=== PATIENT | male | born 1980 | race African-American/Black ===

== ENCOUNTER 2023-07-15 10:18 | Outpatient (AMB) | payer BC, SELFPAY ==
[2023-07-15 10:21] VITALS: BP 122/80; PULSE 93; O2SAT 96; BMI 32.9
--- NOTE | 2023-07-15 10:21 | HO.NEPHOV ---
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 He has been having a serum creatinine of 1.4. His blood pressure is well controlled on nifedipine. He recently had pouchitis and was treated with antibiotics. He denies nausea, vomiting, diarrhea, chest pain, shortness of breath, proximal nocturnal dyspnea, orthopnea, pedal edema, orthostatic symptoms, dysuria or hematuria. He has no history of drug use. He does not take nonsteroidal anti-inflammatories. He t vahe to maintain good hydration. There were no new complaints at the time of this office visit. [facility] Medical History (Updated 07/15/23 @ 10:41 by Cory Clements MD) Elevated serum creatinine Essential (primary) hypertension Askew syndrome Surgical History (Updated 07/15/23 @ 10:24 by Olivia Stroud MA) History of colon surgery Family History Mother Diabetes Hypertension Brother Diabetes Hypertension Cancer Father Cancer Social History (Updated 07/15/23 @ 10:24 by Olivia Stroud MA) Alcohol intake: current Comment: Occasionally Patient Tobacco Use Status: Never used Tobacco Vital Signs 07/15/23 10:21 Height 6 ft 4 in Weight 270 lb BMI 32.9 BP 122/80 Blood Pressure Location Lt brachial Position Sitting Pulse 93 Pulse Source Pulse Oximeter Pulse Oximetry (%) 96 Oxygen Delivery Method Room Air Physical Exam Vital Signs: Last Vital Signs Pulse 93 07/15/23 10:21 BP 122/80 07/15/23 10:21 Pulse Ox 96 07/15/23 10:21 Oxygen Delivery Method Room Air 07/15/23 10:21 BMI result Body Mass Index 32.9 Const General: comfortable and no acute distress Orientation/consciousness: patient oriented x3 HEENT Head: Yes normocephalic Mouth: Normal oral and palatal mucosa present Eyes EOM: EOMs intact bilaterally Neck Neck: Yes supple Resp Auscultation: clear to auscultation bilaterally Cardio Jugular venous distension: no JVD Rate: regular rate GI Palpation (GI): Soft to palpation Auscultation: normal bowel sounds General: Yes no CVA tenderness Back/Spine/Pelvis Back: no CVA tenderness Skin General skin exam: no rashes or lesions noted Neuro General: patient oriented x3 and moves all extremities Extrem General: Yes no pedal edema Assessment & Plan Assessment & Plan (1) Essential (primary) hypertension: Code(s): I10 - Essential (primary) hypertension (2) Askew syndrome: Code(s): Z15.09 - Genetic susceptibility to other malignant neoplasm Plan 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 He had surgery for rectal cancer with the ostomy which was later revised. He has no hematuria or proteinuria. He is hypertensive. He is on nifedipine. He does not take nonsteroidal anti-inflammatories on a regular basis. His last serum creatinine has been 1.4. He may have had mild ATN during his surgical time. Patients with Askew syndrome have high preponderance for renal cancer. He last renal ultrasound with surveillance only showed questionable specks of stones on the left kidney. I will do a follow-up ultrasound next year. His blood pressure needs to be maintained at goal. I have ordered blood work, 24 hour urine for creatinine clearance and a random urine for protein. His her creatinine may also be due to high muscle mass. I did not make any medication changes today. All his questions answered. Follow-up given. Orders: Orders Electrolytes Today I10 - Essential (primary) hypertension, Z15.09 - Genetic susceptibility to other malignant neoplasm Creatinine Clearance Urine Today I10 - Essential (primary) hypertension, Z15.09 - Genetic susceptibility to other malignant neoplasm Creatinine Today I10 - Essential (primary) hypertension, Z15.09 - Genetic susceptibility to other malignant neoplasm Blood Urea Nitrogen Today I10 - Essential (primary) hypertension, Z15.09 - Genetic susceptibility to other malignant neoplasm Protein Creatinine Ratio, Ur Today I10 - Essential (primary) hypertension, Z15.09 - Genetic susceptibility to other malignant neoplasm Coding Level of Care Code Est Pt Level 4 (56162) Diagnoses Essential (primary) hypertension I10 Askew syndrome Z15.09 Results Reviewed Nephrology Results: No Data to Display
== END 2023-07-15 10:49 | disposition home or self-care (01) ==
PROVIDERS: Visit Provider Internal Medicine Nephrology
DX: I10 Essential (primary) hypertension (principal); Z15.09 Genetic susceptibility to other malignant neoplasm
CPT/HCPCS: 99214

== ENCOUNTER → 2023-07-15 10:18 | Outpatient (BNVA) | payer BC, SELFPAY | PROVIDERS: Visit Provider Internal Medicine Nephrology ==

== ENCOUNTER 2023-09-30 08:14 | Outpatient (REF) | payer BC, SELFPAY ==
[2023-09-30 14:06] LABS: Anion Gap 10 (12-20); Blood Urea Nitrogen 11 mg/dL (9-16); Carbon Dioxide 28 mmol/L (22-29); Chloride 107 mmol/L (96-108); Estimated Glomerular Filt Rate 56; Potassium 4.7 mmol/L (3.3-5.1); Sodium 140 mmol/L (135-145)
== END 2023-09-30 08:15 | disposition home or self-care (01) ==
LOC: HO.HKASLDS 08:14
PROVIDERS: Visit Provider Internal Medicine Nephrology
DX: Z15.09 Genetic susceptibility to other malignant neoplasm (principal); I10 Essential (primary) hypertension
CPT/HCPCS: 36415; 80051; 82565; 84520

== ENCOUNTER 2023-11-13 09:58 | Outpatient (AMB) | payer BC, SELFPAY ==
[2023-11-13 10:24] VITALS: BP 126/80; PULSE 78; O2SAT 98; BMI 33.2
--- NOTE | 2023-11-13 10:24 | HO.NEPHOV_ITS ---
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 He has been having a serum creatinine close to 1.4. His blood pressure is well controlled on nifedipine. He recently had pouchitis and was treated with antibiotics. He denies nausea, vomiting, diarrhea, chest pain, shortness of breath, proximal nocturnal dyspnea, orthopnea, pedal edema, orthostatic symptoms, dysuria or hematuria. He has no history of drug use. He does not take nonsteroidal anti-inflammatories. He tries to maintain good hydration. There were no new complaints at the time of this office visit. [facility] Medical History (Updated 11/13/23 @ 10:38 by Cory Clements MD) Elevated serum creatinine Essential (primary) hypertension Askew syndrome Surgical History History of colon surgery Family History Mother Diabetes Hypertension Brother Diabetes Hypertension Cancer Father Cancer Social History Alcohol intake: current Comment: Occasionally Patient Tobacco Use Status: Never used Tobacco Vital Signs 11/13/23 10:24 Height 6 ft 4 in Weight 273 lb 2 oz BMI 33.2 BP 126/80 Blood Pressure Location Lt brachial Position Sitting Pulse 78 Pulse Source Pulse Oximeter Pulse Oximetry (%) 98 Oxygen Delivery Method Room Air Physical Exam Vital Signs: Last Vital Signs Pulse 78 11/13/23 10:24 BP 126/80 11/13/23 10:24 Pulse Ox 98 11/13/23 10:24 Oxygen Delivery Method Room Air 11/13/23 10:24 BMI result Body Mass Index 33.2 Const General: comfortable and no acute distress Orientation/consciousness: patient oriented x3 HEENT Head: Yes normocephalic Mouth: Normal oral and palatal mucosa present Eyes EOM: EOMs intact bilaterally Neck Neck: Yes supple Resp Auscultation: clear to auscultation bilaterally Cardio Jugular venous distension: no JVD Rate: regular rate GI Palpation (GI): Soft to palpation Auscultation: normal bowel sounds General: Yes no CVA tenderness Back/Spine/Pelvis Back: no CVA tenderness Skin General skin exam: no rashes or lesions noted Neuro General: patient oriented x3 and moves all extremities Extrem General: Yes no pedal edema Assessment & Plan Assessment & Plan (1) Askew syndrome: Code(s): Z15.09 - Genetic susceptibility to other malignant neoplasm (2) Essential (primary) hypertension: Code(s): I10 - Essential (primary) hypertension (3) Renal calculus: Code(s): N20.0 - Calculus of kidney Paula Portillo has Askew syndrome. He had surgery for rectal cancer with the ostomy which was later revised. He has no hematuria or proteinuria. He is hypertensive. He is on nifedipine. He does not take nonsteroidal anti- inflammatories on a regular basis. His last serum creatinine has been close to 1.4. He may have had mild ATN during his surgical time. Patients with Askew syndrome have high preponderance for renal cancer. He last renal ultrasound with surveillance only showed questionable specks of stones on the left kidney. I will do a follow-up ultrasound next year. His blood pressure needs to be maintained at goal. I ordered blood work, 24 hour urine for creatinine clear ance and a random urine for protein. His her creatinine may also be due to high muscle mass. I did not make any medication changes today. All his questions answered. Follow-up given Orders: Orders Creatinine Clearance Urine 24U Today I10 - Essential (primary) hypertension, N20.0 - Calculus of kidney, Z15.09 - Genetic susceptibility to other malignant neoplasm Creatinine Today I10 - Essential (primary) hypertension, N20.0 - Calculus of kidney, Z15.09 - Genetic susceptibility to other malignant neoplasm Blood Urea Nitrogen Today I10 - Essential (primary) hypertension, N20.0 - Calculus of kidney, Z15.09 - Genetic susceptibility to other malignant neoplasm Electrolytes Today I10 - Essential (primary) hypertension, N20.0 - Calculus of kidney, Z15.09 - Genetic susceptibility to other malignant neoplasm Protein Creatinine Ratio, Ur Today I10 - Essential (primary) hypertension, N20.0 - Calculus of kidney, Z15.09 - Genetic susceptibility to other malignant neoplasm Medications: Changed From nifedipine ER 30 mg PO DAILY To nifedipine ER 30 mg PO DAILY 90 days 90 tabs 4RF Coding Level of Care Code Est Pt Level 4 (55726) Diagnoses Askew syndrome Z15.09 Essential (primary) hypertension I10 Renal calculus N20.0 Results Reviewed Nephrology Results: Sodium 140 mmol/L (135-145) 09/30/23 Potassium 4.7 mmol/L (3.3-5.1) 09/30/23 Chloride 107 mmol/L (96-108) 09/30/23 Carbon Dioxide 28 mmol/L (22-29) 09/30/23 BUN 11 mg/dL (9-16) 09/30/23 Creatinine 1.38 mg/dL (0.5-1.4) 09/30/23
== END 2023-11-13 10:44 | disposition home or self-care (01) ==
PROVIDERS: Visit Provider Internal Medicine Nephrology
DX: Z15.09 Genetic susceptibility to other malignant neoplasm (principal); I10 Essential (primary) hypertension; N20.0 Calculus of kidney
CPT/HCPCS: 99214

== ENCOUNTER → 2023-11-13 09:58 | Outpatient (BNVA) | payer BC, SELFPAY | PROVIDERS: Visit Provider Internal Medicine Nephrology ==

== ENCOUNTER 2024-04-27 08:33 | Outpatient (REF) | payer BC, SELFPAY ==
[2024-04-27 18:24] LABS: Anion Gap 12 (12-20); Blood Urea Nitrogen 13 mg/dL (9-16); Carbon Dioxide 26 mmol/L (22-29); Chloride 110 mmol/L (96-108); Estimated Glomerular Filt Rate > 60; Potassium 4.8 mmol/L (3.3-5.1); Sodium 143 mmol/L (135-145)
[2024-04-27 18:26] LABS: Creatinine, mg/dL 171.58
[2024-04-27 19:48] LABS: Creatinine, 24Hr Urine 2.9 G/Day (1.0-2.0); Total Volume 24 Hour Urine 1700 mL
[2024-04-27 19:49] LABS: Creatinine (CrCl) 1.19 mg/dL (0.5-1.4); Creatinine Clearance 170.2 mL/min (85-125)
== END 2024-04-27 08:34 | disposition home or self-care (01) ==
LOC: HO.HKASLDS 08:33
PROVIDERS: Visit Provider Internal Medicine Nephrology
DX: N20.0 Calculus of kidney (principal); Z15.09 Genetic susceptibility to other malignant neoplasm; I10 Essential (primary) hypertension
CPT/HCPCS: 36415; 80051; 82565; 82575; 84520

== ENCOUNTER 2024-05-12 08:56 | Outpatient (AMB) | payer BC, SELFPAY ==
--- NOTE | 2024-05-12 09:26 | HO.NEPHOV_ITS ---
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 He had been having a serum creatinine close to 1.4 but settled to baseline now. His blood pressure is well controlled on nifedipine. He denies nausea, vomiting, diarrhea, chest pain, shortness of breath, proximal nocturnal dyspnea, orthopnea, pedal edema, orthostatic symptoms, dysuria or hematuria. He has no history of drug use. He does not take nonsteroidal anti-inflammatories. He tries to maintain good hydration. There were no new complaints at the time of this office visit [facility] Medical History (Updated 11/13/23 @ 10:38 by Cory Clements MD) Elevated serum creatinine Essential (primary) hypertension Askew syndrome Surgical History History of colon surgery Family History Mother Diabetes Hypertension Brother Diabetes Hypertension Cancer Father Cancer Social History Alcohol intake: current Comment: Occasionally Patient Tobacco Use Status: Never used Tobacco Review of Systems Const All systems reviewed & are unremarkable except as noted in HPI and below Physical Exam Vital Signs: Last Vital Signs Pulse 73 05/12/24 09:27 BP 120/70 05/12/24 09:27 Pulse Ox 97 05/12/24 09:27 Oxygen Delivery Method Room Air 05/12/24 09:27 BMI result Body Mass Index 33.1 Const General: comfortable and no acute distress Orientation/consciousness: patient oriented x3 HEENT Head: Yes normocephalic Mouth: Normal oral and palatal mucosa present Eyes EOM: EOMs intact bilaterally Neck Neck: Yes supple Resp Auscultation: clear to auscultation bilaterally Cardio Jugular venous distension: no JVD Rate: regular rate GI Palpation (GI): Soft to palpation Auscultation: normal bowel sounds General: Yes no CVA tenderness Back/Spine/Pelvis Back: no CVA tenderness Skin General skin exam: no rashes or lesions noted Neuro General: patient oriented x3 and moves all extremities Extrem General: Yes no pedal edema Results Reviewed Nephrology Results: Sodium 143 mmol/L (135-145) 04/27/24 Potassium 4.8 mmol/L (3.3-5.1) 04/27/24 Chloride 110 mmol/L (96-108) H 04/27/24 Carbon Dioxide 26 mmol/L (22-29) 04/27/24 BUN 13 mg/dL (9-16) 04/27/24 Creatinine 1.19 mg/dL (0.5-1.4) 04/27/24 Assessment & Plan Assessment & Plan (1) Renal calculus: Code(s): N20.0 - Calculus of kidney Category: Medical (2) Askew syndrome: Code(s): Z15.09 - Genetic susceptibility to other malignant neoplasm Category: Medical (3) Essential (primary) hypertension: Code(s): I10 - Essential (primary) hypertension Category: Medical Plan 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 He had surgery for rectal cancer with the ostomy which was later revised. He has no hematuria or proteinuria. He is hypertensive. He is on nifedipine. He does not take nonsteroidal anti- inflammatories on a regular basis. His last serum creatinine has been close to 1.19. He may have had mild ATN during his surgical time. Patients with Askew syndrome have high preponderance for renal cancer. He last renal ultrasound with surveillance only showed questionable specks of stones on the left kidney. I will do a follow-up ultrasound next year. His blood pressure needs to be maintained at goal. His creatinine may also be due to high muscle mass. I did not make any medication changes today. All his questions answered. Follow-up given Orders: Orders Creatinine 8 Months I10 - Essential (primary) hypertension, N20.0 - Calculus of kidney, Z15.09 - Genetic susceptibility to other malignant neoplasm Blood Urea Nitrogen 8 Months I10 - Essential (primary) hypertension, N20.0 - Calculus of kidney, Z15.09 - Genetic susceptibility to other malignant neoplasm Electrolytes 8 Months I10 - Essential (primary) hypertension, N20.0 - Calculus of kidney, Z15.09 - Genetic susceptibility to other malignant neoplasm Medications: Refilled nifedipine ER 30 mg PO DAILY 90 days 90 tabs 4RF Coding Level of Care Code Est Pt Level 4 (40282) Diagnoses Renal calculus N20.0 Asekw syndrome Z15.09 Essential (primary) hypertension I10
[2024-05-12 09:27] VITALS: BP 120/70; PULSE 73; O2SAT 97; BMI 33.1
== END 2024-05-12 09:54 | disposition home or self-care (01) ==
PROVIDERS: Visit Provider Internal Medicine Nephrology
DX: N20.0 Calculus of kidney (principal); Z15.09 Genetic susceptibility to other malignant neoplasm; I10 Essential (primary) hypertension
CPT/HCPCS: 99214

== ENCOUNTER → 2024-05-12 08:56 | Outpatient (BNVA) | payer BC, SELFPAY | PROVIDERS: Visit Provider Internal Medicine Nephrology ==

== ENCOUNTER 2025-01-10 13:05 | Outpatient (REF) | payer BC, SELFPAY ==
--- OUTSIDE RECORDS SUMMARY | 2025-01-10 14:33 | XMS_ITS | Clinical Summary ---
Author Organization [facility] Address [address] [place] [address] Phone Care Team Providers Care Handle Rounder Operator Name Role Phone Angelica Membreno MD Primary Care Provider [phone] Allergies No known active allergies Medications NIFEdipine XL (PROCARDIA XL) 30 mg 24 hr tablet Take 1 tablet (30 mg total) by mouth daily. Active acetaminophen (TYLENOL) 325 mg tablet Take 2 tablets (650 mg total) by mouth. 10/25/2019 Active benzonatate (TESSALON) 200 mg capsule TAKE 1 CAPSULE BY MOUTH THREE TIMES DAILY FOR 5 DAYS NEEDED FOR COUGH 09/13/2024 Active loperamide HCl (IMODIUM A-D ORAL) Take 2 mg by mouth. 08/09/2016 Active Active Problems Problem Noted Date Diagnosed Date Malignant neoplasm of rectum (CMS/HCC V24, CMS/H CC V28) 04/09/2024 Other fatigue 09/20/2021 Essential hypertension 09/21/2020 COVID-19 virus infection 11/16/2019 Rectal bleeding 07/13/2019 Absolute anemia 02/03/2019 Chest discomfort 12/24/2017 Panic attack 12/24/2017 Weight loss 12/24/2017 Small intestinal bacterial overgrowth 04/27/2017 Autosomal recessive colorect al adenomatous polyposis associated with mutation in MUTYH gene 03/21/2017 Dehydration 03/21/2017 Pernicious anemia 03/21/2017 Askew syndrome 04/21/2015 Overview (04/09/2024): robotic total proctocolectomy with j pouch and protective loop ileostomy in 07/2015 and elective loop ileostomy taken down on 11/22/2015. Dr. Maranda Nelson Encounters Date Type Department Care Team Description 12/15/2024 8:00 AM EDT - 12/15/2024 11:59 PM EDT Hospital Encounter [facility] [address] [place] [phone] Subramonia-Iy Andriy mead MD Other vitamin B12 deficiency anemia (Primary Dx) Discharge Disposition: Home or Self Care 11/17/2024 8:00 AM EDT - 11/17/2024 11:59 PM EDT Hospital Encounter [address] [phone] Reyesramonia-Iy Andriy mead MD Other vitamin B12 deficiency anemia (Primary Dx) Discharge Disposition: Home or Self Care 10/20/2024 7:58 AM EDT - 10/20/2024 11:59 PM EDT Hospital Encounter [address] [phone] Reyesramonia-Iy Andriy mead MD Other vitamin B12 deficiency anemia (Primary Dx) Discharge Disposition: Home or Self Care from Last 3 Months Surgical History Surgery Date Site/Laterality Comments COLONOSCOPY 02/28/2015 PROCEDURE: HISTORICAL COLONOSCOPY; COMMENT: rectal tumor: adenocarcinoma OTHER SURGICAL HISTORY 2015 PROCEDURE: TN LAPS COLCT TTL ABD W/PRCTECT ILEOANAL ANASTOMSIS; COMMENT: Dr. Maranda Nelson ABDOMINAL SURGERY PROCEDURE: HISTORICAL ABDOMINAL SURGERY; COMMENT: total proctocolectomy with ileal J pouch and diverting loop ileostomy s/p reversal Medical History Medical History Date Comments Rectal tumor 02/28/2015 DX:Rectal tumor; COMMENT: CN and bx 02/28/2015: Rectal cancer (CMS/HCC V24, CMS/HCC V28) 02/28/2015 DX:Rectal cancer (HCC); COMM ENT: CN and bx 02/28/2015: Family history of malignant neoplasm of gastrointestinal tract 03/02/2015 DX:Family history of maligna nt neoplasm of gastrointestinal tract; COMMENT: Brother with diagnosis of intestinal cancer at age 49 in 2014. Adenocarcinoma of rectum, st age 2 (CMS/HCC V24, CMS/[facility] V28) 11/12/2016 DX:Adenocarcinoma of rectum , stage 2 (HCC); COMMENT: Please see consult note from [facility] oncology and hematology dated 04/11/2016 Family History Medical History Relation Name Comments Other cancer Brother adenocarcinoma of the small intestine. Prostate cancer Father of it. Diabetes Mother Prostate cancer Paternal Grandfather of it. Relation Name Status Comments Brother Father Mother Paternal Grandfather Social History Tobacco Use Types Packs/Day Years Used Date Smoking Tobacco: Never Smokeless Tobacco: Never Tobacco Cessation:Counseling Given: Not Answered Alcohol Use Standard Drinks/Week Comments Yes 0 (1 standard drink = 0.6 oz pur e alcohol) Sex and Gender Information Value Date Recorded Sex Assigned at Male 06/12/2024 12:52 PM EST Legal Sex Male 8:25 PM EST Gender Identity Male 06/12/2024 12:52 PM EST Sexual Orientation Straight 06/12/2024 12 :52 PM EST Obstetrics History Last Filed Vital Signs Vital Sign Reading Time Taken Comments Blood Pressure 132/88 12/15/2024 8:19 AM EDT Pulse 87 12/15/2024 8:19 AM EDT Temperature 36.2 ??C (97.2 ??F) 12/15/2024 8:19 AM ED T Respiratory Rate 18 12/15/2024 8:19 AM EDT Oxygen Saturation 100% 12/15/2024 8:19 AM EDT Inhaled Oxygen Concentration - - Weight 119 kg (263 lb) 09/22/2024 8:57 AM EST Height 193 cm (6' 4 ) 09/22/2024 8:57 AM EST Body Mass Index 32.01 09/22/2024 8:57 AM EST Plan of Treatment Upcoming Encounters Date Type Department Care Team (Late st Contact Info) Description 01/12/2025 8:00 AM EDT Appointment [facility] [address] [phone] 09/22/2025 9:00 AM EST Office Visit [facility] Hematology Oncology [address] [place] [phone] Stefano-Andriy Mccullough MD [address] [place] [address] Health Maintenance Due Date Last Done Comments Hepatitis B Vaccines (1 of 3 - 19+ 3-dose series) 1997 Pneumococcal Vaccine: Pediatrics (0 to 5 Years) and At-Risk Patients (6 to 64 Years) (1 of 2 - PCV) 1997 COVID-19 Vaccine (3 - Pfizer risk series) 09/18/2020 08/21/2020, 07/31/2020 Colorectal Cancer Screening: Colonoscopy 07/04/2022 Depression Screening 07/04/2022 HIV Screening 07/04/2022 Hepatitis C Screening 07/04/2022 Social Influencers of Health Screening 07/04/2022 Influenza Vaccine (Season Ended) 2025 05/07/2021 Hypertension/CHF/CAD Annual BMP Blood Test 09/22/2025 09/22/2024, 11/24/2023, 11/24/2023 Cholesterol Screening (Lipid Panel) 11/23/2028 11/24/2023 DTaP,Tdap,and Td Vaccines (3 - Td or Tdap) 11/23/2033 11/24/2023, 01/13/2013 HIB Vaccines Aged Out No longer eligi ble based on patient's age to complete this topic HPV Vaccines Aged Out No longer eligi ble based on patient's age to complete this topic Hepatitis A Vaccines Aged Out No long er eligible based on patient's age to complete this topic IPV Vaccines Aged Out No longer eligi ble based on patient's age to complete this topic MMR Vaccines Aged Out No longer eligi ble based on patient's age to complete this topic Meningococcal ACWY Vaccine Aged Out N o longer eligible based on patient's age to complete this topic Meningococcal B Vaccine Aged Out No l onger eligible based on patient's age to complete this topic RSV Immunization Patients Under 20 months Aged Out No longer eligible b ased on patient's age to complete this topic Varicella Vaccines Aged Out No longer eligible based on patient's age to complete this topic Procedures Procedure Name Priority Date/Time Associated Diagnosis Comments COMPREHENSIVE METABOLIC PANEL Routine 09/22/2024 9:16 AM EST Malignant neoplasm of rectum ([facility]/HCC V24, CMS/HCC V28) from Last 3 Months or Most Recently Relevant to Health Maintenance Results * Comprehensive metabolic panel (09/22/2024 9:16 AM EST) Sodium 143 133 - 145 mmol/L LAB CHEMISTRY METHOD 09/22/2024 12:14 PM [facility] Potassium 4.3 3.5 - 5.5 mmol/L LAB CHEMISTRY METHOD 09/22/2024 12:14 PM [facility] Chloride 108 96 - 110 mmol/L LAB CHEMISTRY METHOD 09/22/2024 12:14 PM [facility] CO2 26 21 - 32 mmol/L LAB CHEMISTRY METHOD 09/22/2024 12:14 PM [facility] Anion Gap 9 3 - 11 LAB CHEMISTRY METHOD 09/22/2024 12:14 PM [facility] Glucose 86 70 - 100 mg/dL LAB CHEMISTRY METHOD 09/22/2024 12:14 PM [facility] BUN 12 5 - 25 mg/dL LAB CHEMISTRY METHOD 09/22/2024 12:14 PM [facility] Creatinine 1.23 0.70 - 1.30 mg/dL LAB CHEMISTRY METHOD 09/22/2024 12:14 PM [facility] eGFR 73 >=60 mL/min/1. 73m2 LAB CHEMISTRY METHOD 09/22/2024 12:14 PM [facility] Comment:Calculation based on the??Chronic Kidney Disease Epidemiology Collaboration (CKD-EPI) equation refit??without adjustment for race. BUN/Creatinine Ratio 9.8 LAB CHEMISTRY METHOD 09/22/2024 12:14 PM [facility] Calcium 9.1 8.5 - 10.5 mg/dL LAB CHEMISTRY METHOD 09/22/2024 12:14 PM [facility] AST (SGOT) 18 10 - 42 unit/L LAB CHEMISTRY METHOD 09/22/2024 12:14 PM [facility] ALT (SGPT) 39 10 - 60 unit/L LAB CHEMISTRY METHOD 09/22/2024 12:14 PM EST [facility] Alkaline Phosphatase 76 42 - 121 unit/L LAB CHEMISTRY METHOD 09/22/2024 12:14 PM [facility] Total Protein 7.5 6.0 - 8.0 g/dL LAB CHEMISTRY METHOD 09/22/2024 12:14 PM EST [facility] Albumin 4.0 3.2 - 5.0 g/dL LAB CHEMISTRY METHOD 09/22/2024 12:14 PM [facility] Total Bilirubin 0.9 0.0 - 1.4 mg/dL LAB CHEMISTRY METHOD 09/22/2024 12:14 PM [facility] Blood Venous blood specimen / Unknown Venipuncture / Unknown 09/22/2024 9:16 AM EST 09/22/2024 11:28 AM EST Subramsheree Nair MD LAB BLOOD ORDERABLE S Final Result [facility] [address] [place] [address], from Last 3 Months or Most Recently Relevant to Health Maintenance Insurance [facility] Care Teams Handle Rounder Operator Relationship Specialty Start Date End Date Angelica Membreno MD [address] [place] [address] [facility] - General 09/20/22
[2025-01-10 18:00] LABS: Anion Gap 11 (12-20); Blood Urea Nitrogen 14 mg/dL (9-16); Carbon Dioxide 28 mmol/L (22-29); Chloride 107 mmol/L (96-108); Estimated Glomerular Filt Rate > 60; Potassium 4.3 mmol/L (3.3-5.1); Sodium 142 mmol/L (135-145)
== END 2025-01-10 13:06 | disposition home or self-care (01) ==
LOC: HO.HKASLDS 13:05
PROVIDERS: Visit Provider Internal Medicine Nephrology
DX: N20.0 Calculus of kidney (principal); Z15.09 Genetic susceptibility to other malignant neoplasm; I10 Essential (primary) hypertension
CPT/HCPCS: 36415; 80051; 82565; 84520

== ENCOUNTER 2025-01-12 09:31 | Outpatient (AMB) | payer BC, SELFPAY ==
--- NOTE | 2025-01-12 09:37 | HO.NEPHOV_ITS ---
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 He had been having a serum creatinine close to 1.4 but settled to baseline now. His blood pressure is well controlled on nifedipine. He denies nausea, vomiting, diarrhea, chest pain, shortness of breath, proximal nocturnal dyspnea, orthopnea, pedal edema, orthostatic symptoms, dysuria or hematuria. He has no history of drug use. He does not take nonsteroidal anti-inflammatories. He tries to maintain good hydration. There were no new complaints at the time of this office visit [facility] Medical History (Updated 11/13/23 @ 10:38 by Cory Clements MD) Elevated serum creatinine Essential (primary) hypertension Askew syndrome Surgical History History of colon surgery Family History Mother Diabetes Hypertension Brother Diabetes Hypertension Cancer Father Cancer Social History Alcohol intake: current Comment: Occasionally Patient Tobacco Use Status: Never used Tobacco Review of Systems Const All systems reviewed & are unremarkable except as noted in HPI and below Physical Exam Const General: comfortable and no acute distress Orientation/consciousness: patient oriented x3 HEENT Head: Yes normocephalic Mouth: Normal oral and palatal mucosa present Eyes EOM: EOMs intact bilaterally Neck Neck: Yes supple Resp Auscultation: clear to auscultation bilaterally Cardio Jugular venous distension: no JVD Rate: regular rate GI Palpation (GI): Soft to palpation Auscultation: normal bowel sounds General: Yes no CVA tenderness Back/Spine/Pelvis Back: no CVA tenderness Skin General skin exam: no rashes or lesions noted Neuro General: patient oriented x3 and moves all extremities Extrem General: Yes no pedal edema Results Reviewed Nephrology Results: Sodium, (135-145) 142 mmol/L 01/10/25 Potassium, (3.3-5.1) 4.3 mmol/L 01/10/25 Chloride, (96-108) 107 mmol/L 01/10/25 Carbon Dioxide, (22-29) 28 mmol/L 01/10/25 BUN, (9-16) 14 mg/dL 01/10/25 Creatinine, (0.5-1.4) 1.20 mg/dL 01/10/25 Assessment & Plan Assessment & Plan (1) Essential (primary) hypertension: Code(s): I10 - Essential (primary) hypertension Category: Medical (2) Renal calculus: Code(s): N20.0 - Calculus of kidney Category: Medical (3) Askew syndrome: Code(s): Z15.09 - Genetic susceptibility to other malignant neoplasm Category: Medical Plan 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 He had surgery for rectal cancer with the ostomy which was later revised. He has no hematuria or proteinuria. He is hypertensive. He is on nifedipine. He does not take nonsteroidal anti- inflammatories on a regular basis. His last serum creatinine has been close to 1.2. He may have had mild ATN during his surgical time. Patients with Askew syndrome have high preponderance for renal cancer. He last renal ultrasound with surveillance only showed questionable specks of stones on the left kidney. I ordered a follow-up ultrasound . His blood pressure needs to be maintained at goal. His creatinine may also be due to high muscle mass. I did not make any medication changes today. All his questions answered. Follow-up given Orders: Orders Protein Creatinine Ratio, Ur 1 Year I10 - Essential (primary) hypertension, N20.0 - Calculus of kidney, Z15.09 - Genetic susceptibility to other malignant neoplasm Creatinine 1 Year I10 - Essential (primary) hypertension, N20.0 - Calculus of kidney, Z15.09 - Genetic susceptibility to other malignant neoplasm US renal BI 1 Month I10 - Essential (primary) hypertension, N20.0 - Calculus of kidney, Z15.09 - Genetic susceptibility to other malignant neoplasm Electrolytes 1 Year I10 - Essential (primary) hypertension, N20.0 - Calculus of kidney, Z15.09 - Genetic susceptibility to other malignant neoplasm Blood Urea Nitrogen 1 Year I10 - Essential (primary) hypertension, N20.0 - Calculus of kidney, Z15.09 - Genetic susceptibility to other malignant neoplasm Medications: Refilled nifedipine ER 30 mg PO DAILY 90 tabs 3RF Coding Level of Care Code Est Pt Level 4 (70200) Diagnoses Essential (primary) hypertension I10 Renal calculus N20.0 Askew syndrome Z15.09
[2025-01-12 09:38] VITALS: BP 100/70; PULSE 89; O2SAT 98; BMI 31.9
--- OUTSIDE RECORDS SUMMARY | 2025-01-12 10:29 | XMS_ITS | Clinical Summary ---
Author Organization [facility] Address [address] [place] [address] Phone Care Team Providers Care Iso Coordinator Name Role Phone Angelica Membreno MD Primary Care Provider Allergies No known active allergies Medications NIFEdipine [...] Encounters Date Type Department Care Team Description 01/12/2025 7:59 AM EDT Hospital Encounter [address] [phone] Subramonia-Iy Andriy mead MD Other vitamin B12 deficiency anemia (Primary Dx) 12/15/2024 8:00 AM EDT - 12/15/2024 11:59 PM EDT Hospital Encounter [address] [address] Subramonia-Iy erAndriy MD Other vitamin B12 deficiency anemia (Primary Dx) Discharge Disposition: Home or Self Care 11/17/2024 8:00 AM EDT - 11/17/2024 11:59 PM EDT Hospital Encounter [address] [address] Subramonia-Iy erAndriy MD Other vitamin B12 deficiency anemia (Primary Dx) Discharge Disposition: Home or Self Care 10/20/2024 7:58 AM EDT - 10/20/2024 11:59 PM EDT Hospital Encounter [address] [address] Reyesramonia-Iy erAndriy MD Other vitamin B12 deficiency anemia (Primary Dx) Discharge Disposition: Home or Self Care from Last 3 Months Surgical History Surgery Date Site/Laterality Comments COLONOSCOPY 02/28/2015 PROCEDURE: HISTORICAL COLONOSCOPY; COMMENT: rectal tumor: adenocarcinoma OTHER SURGICAL HISTORY 2015 PROCEDURE: [place] LAPS COLCT TTL ABD W/PRCTECT ILEOANAL ANASTOMSIS; [...] of rectum, st age 1 (CMS/HCC V24, CMS/HCC V28) 11/12/2016 DX:Adenocarcinoma of rectum , stage 2 (HCC); COMMENT: Please see consult note from [facility] oncology and hematology dated 04/11/2016 Family History [...] Sign Reading Time Taken Comments Blood Pressure 114/82 01/12/2025 8:08 AM EDT Pulse 86 01/12/2025 8:08 AM EDT Temperature 36.3 C (97.4 F) 01/12/2025 8:08 AM EDT Respiratory Rate 18 01/12/2025 8:08 AM EDT Oxygen Saturation 99% 01/12/2025 8:08 AM EDT Inhaled Oxygen Concentration - - Weight 119 kg (263 lb) 09/22/2024 8:57 AM EST Height 193 cm (6' 4 ) 09/22/2024 8:57 AM EST Body Mass Index 32.01 09/22/2024 8:57 AM EST Plan of Treatment Upcoming Encounters Date Type Department Care Team (Late st Contact Info) Description 02/09/2025 8:00 AM EDT Appointment [address] [place] [address] 09/22/2025 9:00 AM EST Office Visit [facility] Hematology Oncology [address] [place] [phone] Andriy Nair MD [address] [place] [address] Health Maintenance Due Date Last [...] 9:16 AM EST Malignant neoplasm of rectum (CMS/HCC V24, CMS/HCC V28) from Last 3 Months or Most Recently Relevant to Health Maintenance Results * Comprehensive metabolic panel (09/22/2024 9:16 AM EST) Sodium 143 133 - 145 mmol/L LAB CHEMISTRY METHOD 09/22/2024 12:14 PM [facility] Potassium 4.3 3.5 - 5.5 mmol/L LAB CHEMISTRY METHOD 09/22/2024 12:14 PM [facility] Chloride 108 96 - 110 mmol/L LAB CHEMISTRY METHOD 09/22/2024 12:14 PM [facility] CO2 26 21 - 32 mmol/L LAB CHEMISTRY METHOD 09/22/2024 12:14 PM [facility] Anion Gap 9 3 - 11 LAB CHEMISTRY METHOD 09/22/2024 12:14 PM [facility] Glucose 86 70 - 100 mg/dL LAB CHEMISTRY METHOD 09/22/2024 12:14 PM [facility] BUN 12 5 - 25 mg/dL LAB CHEMISTRY METHOD 09/22/2024 12:14 PM [facility] Creatinine 1.23 0.70 - 1.30 mg/dL LAB CHEMISTRY METHOD 09/22/2024 12:14 PM [facility] eGFR 73 >=60 mL/min/1. 73m2 LAB CHEMISTRY METHOD 09/22/2024 12:14 PM [facility] Comment:Calculation based on the Chronic Kidney Disease Epidemiology Collaboration (CKD-EPI) equation refit without adjustment for race. BUN/Creatinine Ratio 9.8 LAB CHEMISTRY METHOD 09/22/2024 12:14 PM [facility] Calcium 9.1 8.5 - 10.5 mg/dL LAB CHEMISTRY METHOD 09/22/2024 12:14 PM [facility] AST (SGOT) 18 10 - 42 unit/L LAB CHEMISTRY METHOD 09/22/2024 12:14 PM [facility] ALT (SGPT) 39 10 - 60 unit/L LAB CHEMISTRY METHOD 09/22/2024 12:14 PM [facility] Alkaline Phosphatase 76 42 - 121 unit/L LAB CHEMISTRY METHOD 09/22/2024 12:14 PM [facility] Total Protein 7.5 6.0 - 8.0 g/dL LAB CHEMISTRY METHOD 09/22/2024 12:14 PM [facility] Albumin 4.0 3.2 - 5.0 g/dL LAB CHEMISTRY METHOD 09/22/2024 12:14 PM [facility] Total Bilirubin 0.9 0.0 - 1.4 mg/dL LAB CHEMISTRY METHOD 09/22/2024 12:14 PM [facility] Blood Venous blood specimen / Unknown Venipuncture / Unknown 09/22/2024 9:16 AM EST 09/22/2024 11:28 AM EST Andriy Nair MD LAB BLOOD ORDERABLE S Final Result [facility] [address] [place] [address], from Last 3 Months or Most Recently Relevant to Health Maintenance Insurance [facility] [email or web address]] Care Teams Iso Coordinator Relationship Specialty Start Date End Date Angelica Membreno MD [address] [place] [address] PCP - General 09/20/22
== END 2025-01-12 09:54 | disposition home or self-care (01) ==
LOC: HO.HKA 09:32
PROVIDERS: Visit Provider Internal Medicine Nephrology
DX: I10 Essential (primary) hypertension (principal); N20.0 Calculus of kidney; Z15.09 Genetic susceptibility to other malignant neoplasm
CPT/HCPCS: 99214

== ENCOUNTER 2025-02-21 15:22 | Outpatient (REF) | payer BC, SELFPAY ==
--- NOTE | ~2025-02-21 | US_ITS ---
EXAMINATION: US KIDNEY BILATERAL HISTORY: I10 - Essential (primary) hypertension TECHNIQUE: Real-time grayscale ultrasound imaging of the kidneys was performed and images were reviewed. COMPARISON: There are no prior studies available for comparison. FINDINGS: Right kidney: The right kidney measures 12.0 x 4.3 x 5.3 cm. Renal parenchymal echotexture and thickness are normal. There are no masses. There is no hydronephrosis or renal calculi. Left Kidney: The left kidney measures 9.9 x 6.5 x 3.4 cm. There is limited visualization of the lower pole. Renal parenchymal echotexture and thickness are normal. There are no masses. There is no hydronephrosis or renal calculi. US/US renal BI IMPRESSION: Limited visualization of the lower pole of the left kidney. Otherwise unremarkable renal ultrasound. Electronically signed by: Lobo Wolfe MD 02/22/2025 06:57 AM EDT
--- OUTSIDE RECORDS SUMMARY | 2025-02-21 15:43 | XMS_ITS | Clinical Summary ---
Author Organization [facility] Address [address] [place] [address] Care Team Providers Care Manager Utility Name Role Phone Angelica Membreno MD Primary Care Provider [phone] Allergies No known active allergies Medications Medication Sig Dispensed Refills Start Date End Date Status Probiotic Product (PROBIOTIC DAILY PO) Take 1 tablet by mouth daily. 0 Active NIFEdipine (PROCARDIA XL) 30 MG 24 hr tablet Take 1 tablet (30 mg total) by mouth daily. 0 Active metroNIDAZOLE (FLAGYL) 500 MG tablet Take 1 tablet (500 mg total) by mouth. 0 10/04/2022 Active ciprofloxacin (Cipro) 500 MG tablet Take 1 tablet (500 mg total) by mouth. 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/21/2017 Dehydration 03/21/2017 Family History Medical History Relation Name Comments Cancer Father prostate Relation Name Status Comments Father Social History Tobacco Use Types Packs/Day Years Used Date Smoking Tobacco: Never Smokeless Tobacco: Never Alcohol Use Standard Drinks/Week Comments No 0 (1 standard drink = 0.6 oz pur e alcohol) Sex and Gender Information Value Date Recorded Sex Assigned at Male 12/20/2021 2:03 PM EDT Gender Identity Not on file Sexual Orientation Not on file Job Start Date Occupation Industry Not on file Not on file Not on file Last Filed Vital Signs Vital Sign Reading Time Taken Comments Blood Pressure 131/81 05/18/2024 8:19 AM EDT Pulse 77 05/18/2024 8:19 AM EDT Temperature 36.2 C (97.1 F) 05/18/2024 8:19 AM EDT Respiratory Rate 18 05/18/2024 8:19 AM EDT Oxygen Saturation 99% 05/18/2024 8:19 AM EDT Inhaled Oxygen Concentration - - Weight 123.5 kg (272 lb 3.2 oz) 02/20/2024 8:15 AM EDT Height 193 cm (6' 4 ) 09/22/2023 8:57 AM EST Body Mass Index 33.13 09/22/2023 8:57 AM EST Plan of Treatment Health Maintenance Due Date Last Done Comments Hepatitis B Vaccines (1 of 3 - 3-dose series) 1978 Hepatitis C Screening 1978 Pneumococcal Vaccine (1 of 2 - PCV) 1984 Depression Screening 1990 BMI Counseling 1996 Preventative Health Evaluation 1996 COVID-19 Vaccine (3 - Pfizer risk series) 09/18/2020 08/21/2020, 07/31/2020 Colon Cancer Screening (Colonoscopy) 2023 Influenza Vaccine (#1) 2025 , 05/07/2021 DTap / Tdap / Td (3 - Td or Tdap) 11/23/2033 11/24/2023, 01/13/2013 RSV Ped < 20 months Aged Out No longe r eligible based on patient's age to complete this topic Care Teams Manager Utility Relationship Specialty Start Date End Date Angelica Membreno MD [address] [place] [address] PCP - General Internal Medicine 09/20/22
--- OUTSIDE RECORDS SUMMARY | 2025-02-21 15:43 | XMS_ITS ---
Author Name [facility] Organization Unknown Care Team Organization Name Specialty Phone Email Start Date End Da te [facility] Termed, PROVIDER Primary Care 06/04/202202/25
--- OUTSIDE RECORDS SUMMARY | 2025-02-21 15:43 | XMS_ITS | Clinical Summary ---
Author Organization [facility] Address [address] [place] [address] Phone Care Team Providers Care Project Administrative Assistant Name Role Phone Angelica Membreno Primary Care Provider [phone] Allergies No known active allergies Medications Cyanocobalamin 1000 MCG/ML liquid every 30 (thirty) days Active NIFEdipine CC (ADALAT CC) 30 MG 24 hr tablet Take 30 mg by mouth 1 (one) time each day 06/08/2022 Active Active Problems Problem Noted Date Diagnosed Date Ileostomy present 07/04/2022 Body mass index 30+ - obesity 05/01/2022 History of malignant neoplasm of colon 2 Prediabetes 05/01/2022 Low density lipoprotein cholesterol above refere nce range 05/01/2022 Serum creatinine above reference range 2 Snoring 11/12/2021 Overview (07/04/2022): 10/2021 Home Sleep Study did not reveal sleep apnea or nocturnal hypoxia. Essential hypertension 09/21/2020 Chronic kidney disease 09/20/2020 Anemia 02/03/2019 Pernicious anemia 03/21/2017 Askew syndrome 04/21/2015 Overview (01/19/2021): robotic total proctocolectomy with j pouch and protective loop ileostomy in 07/2015 and elective loop ileostomy taken down on 11/22/2015. Dr. Maranda Nelson Resolved Problems Problem Noted Date Diagnosed Date Resolved Date Palpitations 01/19/2021 01/19/2021 Overview (01/19/2021): Dr. Puga - 06/07/14 - PVCs likely due to caffeine; no furhter testing needed; LDL slightly high, repeat in 1 year COVID-19 11/16/2019 01/19/2021 Rectal hemorrhage 07/13/2019 01/19/2021 Chest discomfort 12/24/2017 01/19/2021 Panic attack 12/24/2017 01/19/2021 Weight loss 12/24/2017 01/19/2021 Small bowel bacterial overgrowth syndrome 04/27/2017 01/19/2021 Dehydration 03/21/2017 01/19/2021 Polyp 03/21/2017 01/19/2021 Family history of malignant neoplasm of gastrointestinal tract 03/02/2015 01/19/2021 Overview (01/19/2021): Brother with diagnosis of intestinal cancer at age 49 in 2014. Adenocarcinoma of rectum 02/28/2015 Overview (01/19/2021): CN and bx 02/28/2015: Adenocarcinoma, low-grade. PMS 2 absent; will need testing for Askew syndrome. Please see consult note from [facility] oncology and hematology dated 04/11/2016 colon cancer s/p colectomy with end ileostomy in 07/2015 with reversal in 10/2015 Hyperlipidemia 12/14/2014 01/19/2021 Immunizations Immunization Administration Dates Next Due Influenza Split High Dose Preservative Free IM 1 Pfizer SARS-COV-2 08/21/2020,07/31/2020 Tdap 01/13/2013 Family History Medical History Relation Comments Diabetes Mother Hypertension Mother Hypertension Sibling Relation Status Comments Father Mother Alive Sibling Social History Tobacco Use Types Packs/Day Years Used Date Smoking Tobacco: Never Smokeless Tobacco: Never Tobacco Cessation:Counseling Given: Not Answered Sex and Gender Information Value Date Recorded Sex Assigned at Not on file Legal Sex Male 4:46 PM EST Gender Identity Not on file Sexual Orientation Not on file Last Filed Vital Signs Vital Sign Reading Time Taken Comments Blood Pressure 108/78 01/14/2023 1:41 PM EDT Pulse 98 01/14/2023 1:41 PM EDT Temperature - - Respiratory Rate - - Oxygen Saturation 100% 01/14/2023 1:41 PM EDT Inhaled Oxygen Concentration - - Weight 124 kg (273 lb 12.8 oz) 01/14/2023 1:41 P M EDT Height 193 cm (6' 4 ) 01/14/2023 1:41 PM EDT Body Mass Index 33.33 01/14/2023 1:41 PM EDT Plan of Treatment Health Maintenance Due Date Last Done Comments Hepatitis B Vaccine (1 of 3 - 19+ 3-dose series) 05/14 Pneumococcal Vaccine: Peds ( 0 to 5 Years) and At-Risk Patients (6 to 49 Years) (1 of 2 - PCV) 1997 Influenza Vaccine (#1) 2025 05/07/2021 Insurance Care Teams Project Administrative Assistant Relationship Specialty Start Date End Date Angelica Membreno PCP - General 07/04/22
--- OUTSIDE RECORDS SUMMARY | 2025-02-21 15:43 | XMS_ITS | Clinical Summary ---
Author Organization [facility] Address [address] [place] [address] Phone Care Team Providers Care Institutional Research Director Name Role Phone Angelica Membreno MD Primary Care Provider [phone] Allergies No known active allergies Medications NIFEdipine [...] Encounters Date Type Department Care Team Description 02/09/2025 7:59 AM EDT - 02/09/2025 11:59 PM EDT Hospital Encounter [facility] [address] [place] [phone] Subramonia-Iy Andriy mead MD Other vitamin B12 deficiency anemia (Primary Dx) Discharge Disposition: Home or Self Care 01/12/2025 7:59 AM EDT - 01/12/2025 11:59 PM EDT Hospital Encounter [address] [address] Reyesramonia-Iy Andriy mead MD Other vitamin B12 deficiency anemia (Primary Dx) Discharge Disposition: Home or Self Care 12/15/2024 8:00 AM EDT - 12/15/2024 11:59 PM EDT Hospital Encounter [address] [address] Reyesramonia-Iy Andriy mead MD Other vitamin B12 deficiency anemia (Primary Dx) Discharge Disposition: Home or Self Care from Last 3 Months Surgical History Surgery Date Site/Laterality Comments COLONOSCOPY 02/28/2015 PROCEDURE: HISTORICAL COLONOSCOPY; COMMENT: rectal tumor: adenocarcinoma OTHER SURGICAL HISTORY 2015 PROCEDURE: [place] LAPS COLCT TTL ABD W/PRCTECT ILEOANAL ANASTOMSIS; [...] of rectum, st age 1 (CMS/HCC V24, CMS/[facility] V28) 11/12/2016 DX:Adenocarcinoma of rectum , stage 2 (HCC); COMMENT: Please see consult note from [facility] oncology and hematology dated 04/11/2016 Family History [...] Sign Reading Time Taken Comments Blood Pressure 127/89 02/09/2025 8:06 AM EDT Pulse 72 02/09/2025 8:06 AM EDT Temperature 36.2 C (97.2 F) 02/09/2025 8:06 AM EDT Respiratory Rate 18 02/09/2025 8:06 AM EDT Oxygen Saturation 100% 02/09/2025 8:06 AM EDT Inhaled Oxygen Concentration - - Weight 119 kg (263 lb) 09/22/2024 8:57 AM EST Height 193 cm (6' 4 ) 09/22/2024 8:57 AM EST Body Mass Index 32.01 09/22/2024 8:57 AM EST Plan of Treatment Upcoming Encounters Date Type Department Care Team (Late st Contact Info) Description 03/09/2025 8:00 AM EDT Appointment [facility] [address] [phone] 09/22/2025 9:00 AM EST Office Visit [facility] Hematology Oncology [address] [place] [phone] Andriy Nair MD [address] [place] [phone] Health Maintenance Due Date Last Done Comments Hepatitis B Vaccines (1 of 3 - 19+ 3-dose series) 1997 COVID-19 Vaccine (3 - Pfizer risk series) 09/18/2020 08/21/2020, 07/31/2020 Colorectal Cancer Screening: Colonoscopy 07/04/2022 HIV Screening 07/04/2022 Hepatitis C Screening 07/04/2022 Social Influencers of Health Screening 07/04/2022 Depression Screening 07/28/2024 Influenza Vaccine (#1) 2025 05/07/2021 Hypertension/CHF/CAD Annual BMP Blood Test [...] on patient's age to complete this topic Pneumococcal Vaccine: Pediatrics (0 to 5 Years) and At-Risk Patients (6 to 49 Years) Aged Out No longer eligible b ased [...] 9:16 AM EST Malignant neoplasm of rectum ([facility]/HCC V24, CMS/HCC V28) from Last 3 Months or Most Recently Relevant to Health Maintenance Results * Comprehensive metabolic panel (09/22/2024 9:16 AM EST) Sodium 143 133 - 145 mmol/L LAB CHEMISTRY METHOD 09/22/2024 12:14 PM [facility] Potassium 4.3 3.5 - 5.5 mmol/L LAB CHEMISTRY METHOD 09/22/2024 12:14 PM [facility] Chloride 108 96 - 110 mmol/L LAB CHEMISTRY METHOD 09/22/2024 12:14 PM [facility] CO2 26 21 - 32 mmol/L LAB CHEMISTRY METHOD 09/22/2024 12:14 PM [facility] Anion Gap 9 3 - 11 LAB CHEMISTRY METHOD 09/22/2024 12:14 PM [facility] Glucose 86 70 - 100 mg/dL LAB CHEMISTRY METHOD 09/22/2024 12:14 PM [facility] BUN 12 5 - 25 mg/dL LAB CHEMISTRY METHOD 09/22/2024 12:14 PM [facility] Creatinine 1.23 0.70 - 1.30 mg/dL LAB CHEMISTRY METHOD 09/22/2024 12:14 PM [facility] eGFR 73 >=60 mL/min/1. 73m2 LAB CHEMISTRY METHOD 09/22/2024 12:14 PM [facility] Comment:Calculation based on the Chronic Kidney Disease Epidemiology Collaboration (CKD-EPI) equation refit without adjustment for race. BUN/Creatinine Ratio 9.8 LAB CHEMISTRY METHOD 09/22/2024 12:14 PM [facility] Calcium 9.1 8.5 - 10.5 mg/dL LAB CHEMISTRY METHOD 09/22/2024 12:14 PM [facility] AST (SGOT) 18 10 - 42 unit/L LAB CHEMISTRY METHOD 09/22/2024 12:14 PM [facility] ALT (SGPT) 39 10 - 60 unit/L LAB CHEMISTRY METHOD 09/22/2024 12:14 PM EST [facility] Alkaline Phosphatase 76 42 - 121 unit/L LAB CHEMISTRY METHOD 09/22/2024 12:14 PM [facility] Total Protein 7.5 6.0 - 8.0 g/dL LAB CHEMISTRY METHOD 09/22/2024 12:14 PM [facility] Albumin 4.0 3.2 - 5.0 g/dL LAB CHEMISTRY METHOD 09/22/2024 12:14 PM [facility] Total Bilirubin 0.9 0.0 - 1.4 mg/dL LAB CHEMISTRY METHOD 09/22/2024 12:14 PM [facility] Blood Venous blood specimen / Unknown Venipuncture / Unknown 09/22/2024 9:16 AM EST 09/22/2024 11:28 AM EST Subramsheree Nair MD LAB BLOOD ORDERABLE S Final Result [facility] [address] [place] [address], from Last 3 Months or Most Recently Relevant to Health Maintenance Insurance [facility] Care Teams Institutional Research Director Relationship Specialty Start Date End Date Angelica Membreno MD [address] [place] [address] [facility] - General 09/20/22
== END 2025-02-21 15:23 | disposition home or self-care (01) ==
LOC: HO.US 15:22
PROVIDERS: PCP Internal Medicine; Visit Provider Internal Medicine Nephrology
DX: N20.0 Calculus of kidney (principal); I10 Essential (primary) hypertension; Z15.09 Genetic susceptibility to other malignant neoplasm
CPT/HCPCS: 76775

== ENCOUNTER → 2025-02-21 15:24 | Outpatient (BNV) | payer BC, SELFPAY | PROVIDERS: PCP Internal Medicine; Visit Provider Radiology Diagnostic Radiology | DX: I10 Essential (primary) hypertension (principal) | CPT/HCPCS: 76775 ==